=== PATIENT | male | born 1990 | race Caucasian/White ===

== ENCOUNTER 2024-08-10 22:46 | Emergency (ER) | payer MEDICAID, SELFPAY ==
--- NOTE | 2024-08-10 23:15 | EDNOTE_ITS ---
ED Chest Pain RME/HPI General Chief Complaint: Flu Like Symptoms Stated Complaint: Coughing, lungs are bad Time Seen by Provider: 08/10/24 23:16 Source: patient Arrival date/time: 08/10/24 22:46 34-year-old male with no known medical history presents to the emergency room with a chief complaint of coughing and right-sided chest pain x 1 day Mode of arrival: ambulatory Limitations: no limitations Related Data Previous Rx's ?Medication ?Instructions ?Recorded ibuprofen 600 mg tablet 600 mg PO Q8H PRN pain #30 tabs 09/24/17 azithromycin 500 mg tablet See Rx Instructions PO .COMPLEX #6 04/12/19 tabs ibuprofen 800 mg tablet 800 mg PO TID PRN pain #30 tabs 04/12/19 albuterol sulfate 90 mcg/actuation 180 mcg inhalation Q6H PRN 10/16/22 breath activated powder shortness of breath #1 ea inhaler,sensor (Proair Digihaler) pantoprazole 40 mg tablet,delayed 40 mg PO QDAY #30 tabs 10/16/22 release (Protonix) prednisone 50 mg tablet 50 mg PO QDAY #5 tabs 10/16/22 Allergies Allergy/AdvReac Type Severity Reaction Status Date / Time No Known Allergies Allergy Verified 01/23/21 09:28 Review of Systems Review of Systems Systems Reviewed: All systems reviewed, normal except as documented Constitutional Constitutional: Reports system reviewed and no additional complaints, except as documented, Denies fatigue, Denies fever(s), Denies headache(s) and Denies weakness Eyes Eyes: Reports system reviewed and no additional complaints, except as documented, Denies blurry vision and Denies change in vision ENT Ears, Nose, Mouth, and Throat: Reports system reviewed and no additional complaints, except as documented, Denies otalgia, Denies headache(s), Denies nasal congestion, Denies throat swelling and Denies vertigo Cardiovascular Cardiovascular: Reports system reviewed and no additional complaints, except as documented, Reports chest pain, Reports chest pain with activity, Denies dyspnea and Denies dyspnea on exertion Respiratory Respiratory: Reports system reviewed and no additional complaints, except as documented, Denies chest congestion, Reports cough, Denies dyspnea, Denies dyspnea on exertion and Denies wheezing Gastrointestinal Gastrointestinal: Reports system reviewed and no additional complaints, except as documented, Denies abdominal pain, Denies cramping, Denies nausea and Denies vomiting Genitourinary Genitourinary: Reports system reviewed and no additional complaints, except as documented, Denies dysuria and Denies hematuria Musculoskeletal Musculoskeletal: Reports system reviewed and no additional complaints, except as documented and Denies back pain Integumentary/Breasts Skin/Breast: Reports system reviewed and no additional complaints, except as documented and Denies wounds Neurologic Neurologic: Reports system reviewed and no additional complaints, except as documented, Denies confusion, Denies headache(s), Denies lack of coordination, Denies vertigo and Denies weakness Psychiatric Psychiatric: Reports system reviewed and no additional complaints, except as documented, Denies anxiety, Denies confusion, Denies depression, Denies paranoia, Denies suicidal ideation and Denies tactile hallucinations Endocrine Endocrine: Reports system reviewed and no additional complaints, except as documented and Denies fatigue Hematologic/Lymphatic Hematologic/Lymphatic: Reports system reviewed and no additional complaints, except as documented and Denies lymphadenopathy Allergic/Immunologic Allergic/Immunologic: Reports system reviewed and no additional complaints, except as documented, Denies throat swelling, Denies urticaria and Denies wheezing ED Exam General Limitations: Present no limitations General appearance: Present alert and in no apparent distress Head Head exam: Present atraumatic Eye Eye exam: Present normal appearance, PERRL and EOMI ENT ENT exam: Present normal exam, normal oropharynx and mucous membranes moist Neck Neck exam: Present normal inspection, full ROM and trachea midline Chest Chest inspection: Present normal inspection and symmetric chest wall rise Respiratory Respiratory exam: Present normal lung sounds bilaterally; Absent respiratory distress, wheezes, stridor, accessory muscle use or prolonged expiratory phase Cardiovascular Cardiovascular exam: Present regular rate, normal rhythm and normal heart sounds Abdominal Exam Abdominal exam: Present soft and normal bowel sounds Extremities Exam Extremities exam: Present normal inspection and full ROM Back Exam Back exam: Present normal inspection and full ROM Neurological Exam Neurological exam: Present alert, oriented X3 and CN II-XII intact Psychiatric Psychiatric exam: Present normal affect and normal mood Skin Skin exam: Present warm, dry, intact and normal color Course Quality Measures none Orders Category Date Time Status Bedside COVID-19 Antigen Test NOW Care 08/10/24 23:16 Completed Bedside Influenza A&B Antigen Test NOW Care 08/10/24 23:16 Completed EKG (ED ONLY) *Do not use* NOW Care 08/10/24 23:15 Completed EKG (ED Only) Stat Exams 08/10/24 23:15 Draft XR chest 2V Stat Exams 08/10/24 23:15 Completed B-Type Natriuretic Peptide Stat Lab 08/10/24 23:35 Completed CBC Stat Lab 08/10/24 23:35 Completed Comprehensive Metabolic Panel Stat Lab 08/10/24 23:35 Completed Drug Screen,Urine Stat Lab 08/11/24 00:05 Completed Troponin I Stat Lab 08/10/24 23:35 Completed Urinalysis Stat Lab 08/11/24 00:05 Completed Vital Signs Vital signs: Vital Signs Temperature 98.9 F 08/10/24 23:19 Pulse Rate 100 08/10/24 23:19 Respiratory Rate 18 08/10/24 23:19 Blood Pressure 154/97 H 08/10/24 23:19 Pulse Oximetry (%) 97 08/10/24 23:19 Oxygen Delivery Method Room Air 08/10/24 23:19 O2 saturation 97% within normal limits Chest Pain MDM Narrative MDM Narrative:: 34-year-old male with no known medical history presents to the emergency room with a chief complaint of coughing and right-sided chest pain x 1 day Clinically the patient appears nontoxic and not ill. Patient is hemodynamically stable Lung sounds are clear bilaterally with no abnormal breath sounds. Chest x-ray was completed and was negative for any pneumonic infiltrates. COVID-19 and influenza were negative. CBC CMP were negative for any leukocytosis troponin was negative EKG shows normal sinus rhythm [address] deviation. Patient was discharged and educated to follow-up with primary care provider and return to the emergency room for any evidence of worsening signs or send Patient data External records reviewed:: [facility] previous records Clinical information provided by:: patient Social determinants that could affect healthcare access:: none Patient has the following chronic illnesses:: No chronic illness How is presenting disease/condition affected by chronic disease/condition?: no chronic disease Evaluation data The following diagnostics were reviewed and interpreted by me:: lab results and radiology exam(s) Lab and/or radiology exams considered but not ordered:: Labs and radiology exams considered and ordered Interpretation Summary: Chest x-ray-no pneumonic infiltrates Medications / Prescriptions Medications or Prescriptions considered but not ordered:: Medication not given Medication administrations:: Medication not given Consultations Consultation(s) initiated? (list below): No Diagnosis Chest Pain Differential Diagnosis: pneumothorax, atypical chest pain, st elevation myocardial infarction, costochondritis, chest pain and other (Community-acquired pneumonia/URI/influenza/COVID-19) Most likely diagnosis given after review of the tests above:: Upper respiratory infection Admission Indicated Admission indicated?: not indicated Admission Request Was there a request for admission?: No Disposition Plan Disposition Plan: Discharge Discharge Attestation Discharge Attestation: The patient and all family members were given an opportunity to ask questions and understood the discharge instructions. Discharge instructions specifically effects, indications for sooner follow up or return to the emergency department, and the expected course of current diagnosis. Patient condition: Stable Discharge Plan Plan Patient Disposition: HOME (Self Care) Disposition Comment: Stable Prescriptions/Referrals Prescriptions/Med Rec: No Action ibuprofen 600 mg tablet 600 mg PO Q8H PRN (Reason: pain) Qty: 30 0RF ibuprofen 800 mg tablet 800 mg PO TID PRN (Reason: pain) Qty: 30 0RF azithromycin 500 mg tablet See Rx Instructions .ROUTE .COMPLEX Qty: 6 0RF Rx Instructions: take 500 mg once daily for 3 days Proair Digihaler 90 mcg/actuation aero powdr breath act w/sensor 180 mcg inhalation Q6H PRN (Reason: shortness of breath) Qty: 1 0RF prednisone 50 mg tablet 50 mg PO QDAY Qty: 5 0RF pantoprazole [Protonix] 40 mg tablet,delayed release (DR/EC) 40 mg PO QDAY Qty: 30 0RF Referrals: Ramiro Cooper MD [Primary Care Provider] - In 1 week Problem List Clinical Impression: Upper respiratory infection Patient/Caregiver Discharge Instructions Education Materials: ED URI, Viral, No Abx (Adult) Additional Instructions: Please follow-up with your primary care provider in the next 24 to 48 hours. A chest x-ray was completed and was negative for any pneumonia. COVID-19 and influenza were both negative. Your blood work was completed and was negative for any acute infection. For any evidence of worsening signs or symptoms please return to the emergency room immediately Print Language: Nepali Stand Alone Forms: [employer] Award Info., Work/School Release, Patient Portal Info Letter PA/EWELINA Supervising Physician PA/EWELINA Supervising Physician: Dr. Fernando
--- NOTE | 2024-08-10 23:15 | XR_ITS ---
Examination: PA lateral chest 2 views Technique: Upright PA lateral chest 2 views Exam date and time: August 10, 2024 11:22 PM Indications: Right-sided chest pain today. Findings: Normal heart size Lungs are clear. The osseous structures are intact Impression: No active disease
--- NOTE | 2024-08-10 23:15 | EKG_ITS ---
[facility] Test Date: 2024-08-10 Pat Name: HAILEY CRUZ Department: Room: - Gender: Male [employer]: : 1990 Requested By: Saran Causey Order Number: [id number] Reading MD: Saran Causey Measurements Intervals [place] Rate: 98 P: 58 [place]: 140 QRS: 24 QRSD: 98 T: 48 QT: 349 QTc: 446 Interpretive Statements SINUS RHYTHM INCOMPLETE RIGHT BUNDLE BRANCH BLOCK [90+ ms QRS DURATION, TERMINAL R IN V1/V2, 40+ ms S IN I/aVL/V4/V5/V6] Compared to ECG 10/16/2022 17:57:02 Incomplete right bundle-branch block now present /store/S0/[id number].pdf
[2024-08-10 23:19] VITALS: BP 154/97; PULSE 100; RESP 18; TEMP 37.2; O2SAT 97; BMI 27.3
[2024-08-11 00:10] LABS: Collection Type, Urine Clean Catch; Squamous Epithelial Cell,Urine 0 /hpf (0-5)
[2024-08-11 00:23] LABS: B-Type Natriuretic Peptide < 20 pg/mL (0-100); Basophils # (Auto) 0.1 Thou/mm3 (0.0-0.2); Basophils % (Auto) 1 % (0-2.5); Eosinophils # (Auto) 0.1 Thou/mm3 (0.0-0.5); Eosinophils % (Auto) 1 % (0-10); Hematocrit 41.7 % (41.0-53.0); Hemoglobin 14.7 g/dL (13.5-16.0); Immature Granulocytes % (Auto) 0 % (0-0); Immature Granulocytes Auto 0.04 Thou/mm3 (0.00-0.00); Lymphocytes # (Auto) 2.2 Thou/mm3 (1.0-4.8); Lymphocytes % (Auto) 20 % (10-50); Mean Corpuscular HGB Conc 35.3 g/dl (31.0-37.0); Mean Corpuscular Hemoglobin 31.5 pg (25.0-35.0); Mean Corpuscular Volume 90 fL (80-100); Monocytes # (Auto) 0.8 Thou/mm3 (0.0-0.8); Monocytes % (Auto) 7 % (0-12); Neutrophils # (Auto) 7.7 Thou/mm3 (1.8-7.7); Neutrophils % (Auto) 71 % (37-80); Nucleated Red Blood Cell % 0 /100 WBC (0); Platelet Count 232 Thou/mm3 (140-440); RDW Standard Deviation 38.9 fL (35.1-43.9); Red Blood Count 4.66 Miln/mm3 (4.50-5.90); White Blood Count 10.9 Thou/mm3 (3.8-10.6)
[2024-08-11 00:26] LABS: Alanine Aminotransferase 53 U/L (10-49); Albumin, Serum 5.2 gm/dL (3.5-5.0); Alkaline Phosphatase 87 U/L (46-116); Anion Gap 9 (7-16); Aspartate Amino Transferase 25 U/L (0-34); BUN/Creatinine Ratio 18 Ratio (12-20); Bilirubin,Total 0.4 mg/dL (0.3-1.2); Blood Urea Nitrogen 18 mg/dL (9-23); Calcium 9.9 mg/dL (8.3-10.6); Calcium (Corrected) 9.9 mg/dL (8.5-10.1); Carbon Dioxide 27.2 mMol/L (20.0-31.0); Chloride 103 mMol/L (98-107); Estimated Creatinine Clearance 102.1 mL/min (>60); Globulin 2.6 gm/dL (2.3-3.5); Glucose 86 mg/dL (74-106); Osmolality,Calculated 278 (275-295); Potassium 3.4 mMol/L (3.4-5.1); Sodium 139 mMol/L (136-145); Total Protein 7.8 gm/dL (5.7-8.2); Troponin I < 0.020 ng/mL (0.0-0.045); eGFR > 60 See Note
[2024-08-11 00:39] LABS: Bilirubin,Urine Negative (Negative); Blood,Urine Negative (Negative); Clarity,Urine Clear (Clear/Hazy); Color,Urine Yellow (Lt Yel-Yel); Glucose, Urine Negative (Negative); Ketones,Urine Negative (Negative); Leukocyte Esterase,Urine Negative (Negative); Nitrite,Urine Negative (Negative); PH,Urine 6.5 (5.0-7.0); Protein,Urine Trace (Neg - Trace); RBC,Urine 1 /hpf (0-3); Specific Gravity,Urine 1.032 (1.001-1.035); Urobilinogen,Urine Negative mg/dL (0.0-1.0); WBC,Urine < 1 /hpf (0-5)
[2024-08-11 01:31] LABS: Amphetamine/Methamp Scrn,U Negative (Negative); Barbiturate Screen,Urine Negative (Negative); Benzodiazepines Screen,Urine Negative (Negative); Benzoylecgonine Screen, Ur Negative (Negative); Fentanyl Screen,Urine Negative (Negative); Opiate Screen,Urine Negative (Negative); THC Screen,Urine Positive (Negative)
[2024-08-11 01:42] VITALS: RESP 18
== END 2024-08-11 01:43 | disposition home or self-care (01) ==
PROVIDERS: Nurse Practitioner Family; Emergency Provider Emergency Medicine; PCP Family Medicine
DX: J06.9 Acute upper respiratory infection, unspecified (principal)
CPT/HCPCS: 36415; 71046; 80053; 80307; 81001; 83880; 84484; 85025; 87400; 87811; 93005; 99283